=== PATIENT | female | born 1955 | race Caucasian/White ===

== ENCOUNTER 2022-05-03 08:19 | Outpatient (CLI) | payer MEDICARE ==
--- NOTE | 2022-05-03 09:57 | DEXA Report ---
PROCEDURE: Dexa Spine and/or Hip INDICATIONS: POST MENOPAUSAL TECHNIQUE: Dual energy x-ray absorptiometry (DXA) was performed on a [employer] System. Regions measur ed are the AP Spine, femoral neck, and if needed forearm. COMPARISON: Report of DEXA, 06/22/2011. FINDINGS: Lumbar Spine: Bone Mineral Density 1.454 g/cm/cm,T score 2.3, normal Left Femoral Neck: Bone Mineral Density 0.864 g/cm/cm, T score -1.2, osteopenia Left Hip: Bone Mineral Density 0.935 g/cm/cm,T score -0.6, normal (T score greater or equal to -1.0: NORMAL) (T score from -1.1 to -2.4: OSTEOPENIA) (T score less than or equal to -2.5 to: OSTEOPOROSIS) Impression: 1. Based on WHO criteria, the patient has osteopenia. Cannot perform statistical analysis when compar ed to the last exam. Patients with diagnosis of osteoporosis or osteopenia should have regular bone mineral density assess ment. For those eligible for Medicare, routine testing is allowed once every 2 years. Testing frequ ency can be increased for patients who have rapidly progressing disease or for those who are receivin g medical therapy to restore bone mass. Reviewed by: Chiquis Brian MD on 05/03/2022 9:55 AM PST Approved by: Chiquis Brian MD on 05/03/2022 9:55 AM PST Station ID: [id number]
== END 2022-05-03 08:20 | disposition home or self-care (01) ==
LOC: DI 08:19
PROVIDERS: ATTEND Nurse Practitioner Family
DX: Z78.0 Asymptomatic menopausal state (principal); M85.88 Other specified disorders of bone density and structure, other site